=== PATIENT | female | born 1935 | race Hispanic/Latino ===

== ENCOUNTER 2016-09-12 14:39 | Outpatient (CLI) | payer MEDICARE ==
--- NOTE | 2016-09-13 10:00 | XRay Report ---
CHEST TWO VIEWS: 09/12/16 14:39:00 CLINICAL: Chest pain. COMPARISON: 06/13/15 FINDINGS: Normal heart and pulmonary vasculature.A right Vsgwal-p-[id number] tip is in the distal SVC and is unchanged compared to the prior exam. The lungs are normally expanded and clear. A moderate size hiatal hernia is not as well-defined as on the prior exam. Degenerative change in the spine. IMPRESSION: No acute cardiopulmonary process.
== END 2016-09-12 14:40 | disposition home or self-care (01) ==
LOC: SPVIMAG 14:39
PROVIDERS: ATTEND Internal Medicine
DX: R07.9 Chest pain, unspecified (principal); K44.9 Diaphragmatic hernia without obstruction or gangrene; M47.899 Other spondylosis, site unspecified; E78.00 Pure hypercholesterolemia, unspecified; E03.9 Hypothyroidism, unspecified; D64.9 Anemia, unspecified; F41.9 Anxiety disorder, unspecified; Z68.30 Body mass index [BMI] 30.0-30.9, adult
CPT/HCPCS: 71020

== ENCOUNTER 2017-03-07 08:53 | Outpatient (CLI) | payer MEDICARE ==
--- NOTE | 2017-03-07 11:05 | Mammography Report ---
BONE DEXA:03/07/17 08:53:00 CLINICAL: Postmenopausal. No comparison. TECHNIQUE: Two site bone DEXA performed on an Hologic scanner. FINDINGS: The average BMD of the lumbar spine L1 and L2 is 0.808g/cm squared with a T-score of -1.6 and a Z-score of +1.0. The L3 and L4 vertebrae were excluded as outliers because of endplate sclerosis. Moderate levoscoliosis. The average BMD of the left hip is 0.787g/cm squared with a T-score of -1.3 and a Z-score of +0.9. IMPRESSION: WHO classification: Osteopenia with increased fracture risk based on both spine and left hip measurements. RECOMMENDATION: Clinical correlation and routine screening. DEFINITIONS: BMD = Bone Mineral Density T-score = BMD related to mean peak bone mass of young adult (mean expressed in Standard Deviation) Z-score = Age matched BMD expressed in SD World Health Organization (WHO) Diagnostic Criteria Normal T-score > -1 SD Osteopenia T-score between -1 and -2.4 SD Osteoporosis T-score -2.5 SD or below NOTE: BMD is not the only risk factor for fracture. One should also consider factors such as the patient's age, risk of falling, previous osteoporotic fracture, family history of osteoporotic fractures, current smoker, and low body weight. Z-scores are not calculated if >80 years of age.
== END 2017-03-07 08:54 | disposition home or self-care (01) ==
LOC: SPVWC 08:53
PROVIDERS: ATTEND Internal Medicine Hematology & Oncology
DX: M85.88 Other specified disorders of bone density and structure, other site (principal); C90.00 Multiple myeloma not having achieved remission; Z78.0 Asymptomatic menopausal state; Z79.899 Other long term (current) drug therapy
CPT/HCPCS: 77080

== ENCOUNTER 2018-10-09 14:22 | Outpatient (CLI) | payer MEDICARE ==
--- NOTE | 2018-10-09 15:16 | XRay Report ---
LEFT HIP HISTORY: Pain. COMPARISON: None. TECHNIQUE: 3 views of the left hip obtained. FINDINGS: Bones: No fracture or dislocation. Mild osteopenia. 2 lucent lesions are identified in the proximal femur on one view. Joint spaces: Mild arthritis of the left hip. Status post right total joint replacement. Soft tissues: No significant abnormality. Additional findings: None. IMPRESSION: 1. Suspicious lucent lesions of the proximal femur are suspicious for either metastatic tumor or mult iple myeloma. Recommend further workup with a nuclear medicine bone scan. 2. Mild arthritis of the left hip. Signer Name: Jack Priest MD Signed: 10/09/2018 3:11 PM Workstation Name: [id number]
--- NOTE | 2018-10-09 15:23 | XRay Report ---
LEFT RIBS, 3 VIEWS INDICATION: PLEURITIC CHEST PAIN. COMPARISON: None. IMPRESSION: Subtle nondisplaced left lateral rib deformities are suspected at the fourth and eighth levels. These could represent nondisplaced fractures. Please correlate with the patient. The remaini ng ribs are grossly intact. The left lung is adequately aerated. Mild cardiomegaly is noted. Signer Name: Felix Garcia Jr, MD Signed: 10/09/2018 3:18 PM Workstation Name: [id number]
== END 2018-10-09 14:23 | disposition home or self-care (01) ==
LOC: SPVIMAG 14:22
PROVIDERS: ATTEND Internal Medicine
DX: M16.12 Unilateral primary osteoarthritis, left hip (principal); M85.88 Other specified disorders of bone density and structure, other site; I11.9 Hypertensive heart disease without heart failure; E78.00 Pure hypercholesterolemia, unspecified; K21.9 Gastro-esophageal reflux disease without esophagitis; Z90.89 Acquired absence of other organs; Z90.710 Acquired absence of both cervix and uterus